=== PATIENT | male | born 1960 | race Caucasian/White ===

== ENCOUNTER 2024-01-18 15:58 | Inpatient (IN) | payer BC ==
[2024-01-18 16:35] LABS: Absolute Basophils 0.1 K/uL (0-0.5); Absolute Eosinophils 0.5 K/uL (0-0.5); Absolute Lymphocytes (CBC) 1.3 K/uL (0.7-4.9); Absolute Monocytes 1.1 K/uL (0.1-1.3); Absolute Neutrophil 4.4 K/uL (1.8-8.0); Basophils % 1.1 % (0-1.3); Eosinophils % 7.3 % (0-4.4); Hematocrit 43.1 % (39.6-49.0); Hemoglobin 14.6 g/dL (13.6-17.9); Lymphocytes % 17.2 % (15.3-44.8); MCH 29.9 pg (27.0-35.0); MCHC 33.9 g/dL (32.0-36.0); MCV 88.3 fL (80-100); MPV 9.7 fL (7.6-11.3); Monocytes % 14.3 % (3.3-12.3); Neutrophils % 60.1 % (41.7-73.7); Platelets 260 thou/uL (152-406); RBC Red Blood Cell Count 4.88 M/uL (4.33-5.43); Red Cell Distribution Width 13.9 % (12.1-15.2)
--- NOTE | 2024-01-18 16:39 | RAD REPORT ---
EXAMINATION: CT HEAD WITHOUT CONTRAST CLINICAL INDICATION: Male, 63 years old.STROKE ALERT TECHNIQUE: Axial CT images from the skull base to the vertex without intravenous contrast. Coronal an d sagittal reformatted images were created from the data set. One or more of the following dose reduction techniques were used: Automated exposure control, adjustment of the mA and/or kV according to patient size, and/or iterative reconstruction. Unless otherwise specified, incidental findings do not require dedicated imaging follow-up. [id number]. COMPARISON: No prior exam. FINDINGS: INTRACRANIAL: No acute intracranial hemorrhage. No acute large vascular territory infarct. Mild patch y areas of white matter hypoattenuation within the subcortical and deep white matter. Age-indeterminate right neal radiata infarct. VASCULATURE: No visualized abnormalities in the arteries or dural venous sinuses. SCALP/SKULL: No significant soft tissue or osseous abnormalities. SINUSES: The visualized paranasal sinuses and mastoid air cells are predominantly clear. IMPRESSION: No acute intracranial hemorrhage or large vascular territory infarct. Background of likely chronic sm all vessel ischemic changes and age indeterminate right neal radiata infarct. Conveyed to Dr. Wright by Dr. Grace at 1635 on 01/18/24
[2024-01-18 16:43] LABS: PT Prothrombin Time 12.1 SECONDS (9.4-12.5); PTT, Activated Partial Thromb 32.8 SECONDS (24.3-36.9); Protime INR 1.08
--- NOTE | 2024-01-18 16:44 | RAD REPORT ---
EXAMINATION: CTA NECK CLINICAL INDICATION: Male, 63 years old. l leg numbness TECHNIQUE: Axial CT images were obtained from the aortic arch to the skull base after intravenous con trast utilizing angiographic protocol with 3D post-processing (maximum intensity projection images, volume rendered images and/or shaded surface rendered images). One or more of the following dose redu ction techniques were used: Automated exposure control, adjustment of the mA and/or kV according to patient size, and/or iterative reconstruction. Unless otherwise specified, incidental findings do not require dedicated imaging follow-up. [id number]. NASCET criteria used. Mild 0-49% stenosis Moderate 50-69% stenosis Severe 70-99% stenosis COMPARISON: No prior exam. FINDINGS: AORTA: The imaged aortic arch is normal. CCA: The common carotid arteries are patent and normal in caliber. ICA/ECA: Bilateral internal and external carotid arteries are patent. There is no significant interna l carotid artery stenosis. Where applicable, degree of stenosis is measured using NASCET-like criteria. VERTEBRAL: The cervical vertebral arteries are patent and codominant. SOFT TISSUE: No significant neck soft tissue abnormalities. Mediastinal adenopathy is present within the visualized upper mediastinum. 3D images confirm these findings. IMPRESSION: 1. No flow limiting stenosis or dissection identified within the neck. 2. Partially imaged adenopathy and superior mediastinum. This is nonspecific. Consider follow-up CT s can of the chest to better assess.
--- NOTE | 2024-01-18 16:46 | RAD REPORT ---
EXAMINATION: CTA HEAD CLINICAL INDICATION: Male, 63 years old. STROKE ALERT TECHNIQUE: Axial CT images were obtained through the head after intravenous contrast utilizing angiog raphic protocol with 3D post-processing (maximum intensity projection images, volume rendered images and/or shaded surface rendered images). One or more of the following dose reduction technique s were used: Automated exposure control, adjustment of the mA and/or kV according to patient size, and/or iterative reconstruction. Unless otherwise specified, incidental findings do not require dedic ated imaging follow-up. COMPARISON: No prior exam. FINDINGS: ICA: The petrous, cavernous, and supraclinoid segments of the bilateral internal carotid arteries are normal. The ophthalmic artery origins are visualized and normal. The posterior communicating arteries are patent. BELLA: Anterior cerebral arteries are normal bilaterally. The anterior communicating artery is patent. MCA: Middle cerebral arteries are normal bilaterally. CONE CLEANER: Posterior cerebral arteries are normal bilaterally. Vertebrobasilar: The vertebral arteries are patent. The basilar artery is normal in appearance. 3D images confirm these findings. IMPRESSION: No aneurysm, occlusion, or stenosis identified.
[2024-01-18 16:55] LABS: ALT/SGPT 31 U/L (16-61); AST/SGOT 14 U/L (15-37); Albumin 3.6 g/dL (3.4-5.0); Albumin/Globulin Ratio 0.8 (1.1-1.8); Alkaline Phosphatase 64 U/L (45-117); Anion Gap 10.6 mEq/L (5.0-15.0); BUN Blood Urea Nitrogen 19 mg/dL (7-18); Bicarbonate 27 mEq/L (21-32); Bilirubin Direct < 0.2 mg/dL (0-0.2); Bilirubin Indirect, Calculated 0.2 mg/dL (0.2-0.8); Bilirubin Total 0.4 mg/dL (0.2-1.0); Globulin 4.3 g/dL (2.3-3.5); Glomerular Filtration Rate 58 ml/min (=/>90); Glucose Level 94 mg/dL (74-106); Magnesium 1.8 mg/dL (1.6-2.4); Potassium 3.6 mEq/L (3.5-5.1); Protein, Total 7.9 g/dL (6.4-8.2); Sodium Level 139 mEq/L (136-145); Troponin High Sensitivity 20.1 pg/mL (<58.9)
--- NOTE | 2024-01-18 16:59 | RAD REPORT ---
EXAMINATION: ONE VIEW CHEST XR CLINICAL INDICATION: Male, 63 years old.cva TECHNIQUE: 1 View, AP supine, X-ray of the chest was performed. [id number]. COMPARISON: No prior exam. FINDINGS: Lungs and pleura: Clear lungs. No effusion. Heart and mediastinum: Normal heart size. Unremarkable mediastinal contours. Osseous structures: No acute abnormality. Tubes/lines: None Other: None. IMPRESSION: No acute intrathoracic abnormality.
--- NOTE | 2024-01-18 17:59 | P.HP ---
Certification for Inpatient Patient admitted to: Inpatient With expected LOS: >2 Midnights Patient will require the following post-hospital care: None Practitioner: I am a practitioner with admitting privileges, knowledge of patient current condition, hospital course, and medical plan of care. Services: Services provided to patient in accordance with Admission requirements found in Title 42 Section 412.3 of the Code of Federal Regulations <Angelia Tran - Last Filed: 01/18/24 19:33> Patient History Date of Service: 01/18/24 Reason for admission: TIA/CVA History of Present Illness: Mr. Devlin is a 63-year-old male with a past medical history of hypertension and hyperlipidemia. 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 He was outdoors and about 90 degree weather but did not not feel overheated. ED evaluation showed negative CT head without contrast , CTA head and neck negative, chest x-ray negative, labs unremarkable (mild bump in creatinine 1.37 with a GFR of 58). Patient normally takes losartan and rosuvastatin. He recently started HCTZ. He had an echo in his home town 3 days ago and is scheduled for outpatient stress test SaturdayJanuary 20 in [facility]. On exam, he is alert and oriented, he does show some left upper arm weakness at 4/5 and he has almost spastic movement of his left lower leg. On lifting left leg he has some droop with rebound and has some lack of coordination in knee to foot motion. His 3-lead EKG visible at bedside shows PACs alternating with bigeminy at a rate between 60 and 70. He denies chest pain, dizziness, diaphoresis, shortness of breath, states he feels back to normal. Imaging: Chest x-ray findings "no acute intrathoracic abnormality." "No acute intracranial hemorrhage or large vascular territory infarct. Background of likely chronic small vessel ischemic changes and age-indeterminate right nela radiata infarct." "No aneurysm occlusion or stenosis identified." "No flow-limiting stenosis or dissection identified within the neck. Partially imaged adenopathy in the superior mediastinum. This is nonspecific. Consider follow-up CT scan of chest to better assess." Home medications list reviewed: Yes (Losartan HCTZ and rosuvastatin) - Past Medical/Surgical History Has patient received pneumonia vaccine in the past: No -: HTN -: HLD -: Hypertension -: Hyperlipidemia Psychosocial/ Personal History: Lives in [place] with his . Never smoker, denies alcohol use, states he does have some left upper arm weakness chronically - Family History Mother -: Hypertension - Social History Smoking Status: Never smoker Alcohol use: No CD- Drugs: No Caffeine use: Yes Place of Residence: Home <Angelia Tran Heladio - Last Filed: 01/18/24 19:33> Date of Service: 01/18/24 <RefugioadelineHelenafred Hastings - Last Filed: 01/18/24 21:29> Allergies No Known Allergies Allergy (Unverified 01/18/24 19:10) Review of Systems 10-point ROS is otherwise unremarkable General: Weakness Eyes: Unremarkable ENT: Unremarkable Respiratory: Unremarkable Cardiovascular: Unremarkable Gastrointestinal: Unremarkable Genitourinary: Unremarkable Musculoskeletal: Unremarkable Integumentary: Unremarkable Neurological: Unremarkable Lymphatics: Unremarkable <Angelia Tran Heladio - Last Filed: 01/18/24 19:33> Physical Examination - Physical Exam General: Alert, In no apparent distress, Oriented x3, Other (GCS 15) HEENT: Atraumatic, Normocephalic, PERRLA Neck: Supple, 2+ carotid pulse no bruit Respiratory: Normal air movement Cardiovascular: Other (PACs and bigeminy), Irregular heart rate/rhythm Capillary refill: <2 Seconds Gastrointestinal: Normal bowel sounds, Soft and benign Musculoskeletal: No clubbing, No swelling, Other (Left lower extremity spastic motion, and uncoordination, mild left upper extremity weakness 4/5) Integumentary: No rashes, No breakdown Neurological: Normal speech, Normal tone, Sensation intact, Normal affect, Other (Left upper extremity 4/5 strength, spasticity and incoordination of left lower leg ), Abnormal strength Lymphatics: No axilla or inguinal lymphadenopathy External genitalia: Deferred Rectal: Deferred - Studies Laboratory Data (last 24 hrs) 01/18/24 01/18/24 01/18/24 16:20 16:20 16:20 WBC 7.40 Hgb 14.6 Hct 43.1 Plt Count 260 PT 12.1 INR 1.08 APTT 32.8 Sodium 139 Potassium 3.6 BUN 19 H Creatinine 1.37 H Glucose 94 Magnesium 1.8 Total Bilirubin 0.4 AST 14 L ALT 31 Alkaline Phosphatase 64 <Angelia Tran Heladio - Last Filed: 01/18/24 19:33> - Studies Laboratory Data (last 24 hrs) 01/18/24 01/18/24 01/18/24 16:20 16:20 16:20 WBC 7.40 Hgb 14.6 Hct 43.1 Plt Count 260 PT 12.1 INR 1.08 APTT 32.8 Sodium 139 Potassium 3.6 BUN 19 H Creatinine 1.37 H Glucose 94 Magnesium 1.8 Total Bilirubin 0.4 AST 14 L ALT 31 Alkaline Phosphatase 64 <Kael Zuleta Darling - Last Filed: 01/18/24 21:29> Assessment and Plan - Plan TIA/CVA left motor incoordination Hypertension and hyperlipidemia Cardiac arrhythmia Telemetry MRI of the brain; available Saturday (48 hours) Echocardiogram (patient had echo 3 days ago per his qa specialist and is set for stress test on Saturday, January 20) and CTA head and neck (CTs done in ED) Platelet inhibitor Folic acid Statin (high dose and add Plavix) Losartan (per home medicine) Consult neuro Every 4h neurochecks Every shift NIH scale Monitor electrolytes and telemetry Bedside swallow study and then AHA diet VTE/GI prophylaxis NIHSS (2) 1 4 left lower extremity drift, and 1 for left lower extremity ataxia - Advance Directives Does patient have a Living Will: No Does patient have a Durable POA for Healthcare: No - Code Status/Comfort Care Code Status Assessed: Yes (Full) <Angelia Tran Heladio - Last Filed: 01/18/24 19:33> - Plan Pt seen and examined. I agree with the note by the SEED SERVICE ADVISOR. Pt is a 63yo male with past medical history of hypertension and hyperlipidemia who presents with left leg tingling and numbness. Of note. 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 He was also under the hot sun. On admission, CT head is unremarkable. CTA head and neck are unremarkable. CXR is unremarkable. Lab studies show Cr 1.37 . Of note pt had Echo 3 days ago and he is scheduled to do NM stress test on 01/21/24. At bedside, pt is in NAD. A/P: TIA/ CVA symptoms: Will admit pt to r/o CVA. CT head / CTA head and neck are unremarkable. Will allow permissive htn. Continue aspirin and statin. Consulted Neurology/ ST/OT. Will f/u MRI. Htn: Will allow permissive htn. HLD: statin DVT ppx: SCD Code: full <Kael Zuleta - Last Filed: 01/18/24 21:29>
--- NOTE | 2024-01-18 18:03 | ER ---
Nurse's Notes [facility] Name: Johan Devlin Age: 63 yrs Sex: Male : 1960 Arrival Date: 01/18/2024 Time: 15:58 Bed 6 Private MD: Diagnosis: Transient ischemic attack Presentation: 01/17 16:00 Chief complaint: Patient states: left leg got weak about noon feels numb from knee ko1 down, not better or worse. Coronavirus screen: At this time, the client does not indicate any symptoms associated with coronavirus-19. Ebola Screen: No symptoms or risks identified at this time. Initial Sepsis Screen: Does the patient meet any 2 criteria? No. Patient's initial sepsis screen is negative. Does the patient have a suspected source of infection? No. Patient's initial sepsis screen is negative. Risk Assessment: Do you want to hurt yourself or someone else? Patient reports no desire to harm self or others. Onset of symptoms was January 18, 2024. 16:00 Method Of Arrival: Ambulatory ko1 16:00 Acuity: ROSEMARIE 3 ko1 16:27 Acuity: ROSEMARIE 2 mb9 Triage Assessment: 16:03 General: Appears in no apparent distress. Behavior is calm, cooperative, appropriate ko1 for age. Pain: Denies pain. Historical: - Allergies: 16:03 No Known Allergies; ko1 - Home Meds: 16:03 Unable to obtain [Active]; ko1 - PMHx: 16:03 Hypertensive disorder; Hypercholesterolemia; ko1 - PSHx: 16:03 None; ko1 - Immunization history:: Adult Immunizations unknown. - Infectious Disease History:: Denies. - Social history:: Smoking status: Patient denies any tobacco usage or history of. - Family history:: not pertinent. Screenin:13 [facility] ED Fall Risk Assessment (Adult) History of falling in the last 3 months, mb9 including since admission No falls in past 3 months (0 pts) Confusion or Disorientation No (0 pts) Intoxicated or Sedated No (0 pts) Impaired Gait No (0 pts) Mobility Assist Device Used No (0 pt) Altered Elimination No (0 pt) Score/Fall Risk Level 0 - 2 = Low Risk Oriented to surroundings, Maintained a safe environment, Educated pt \T\ family on fall prevention, incl call for assistance when getting out of bed. Abuse screen: Denies threats or abuse. Nutritional screening: No deficits noted. Tuberculosis screening: No symptoms or risk factors identified. 16:27 Mayte Swallow Protocol Brief Cognitive Screen What is your name? Normal, Where are you mb9 right now? Normal, What year is it? Normal. Oral Mechanism Examination Facial Symmetry: Normal, Motion: Normal, Lip Closure: Normal, Oral Mechanism Result: Normal. 3 oz Water Swallow Challenge: Pt able to drink all water without stopping, coughing, choking or throat clearing: Yes Result: PASS MD Notified: Marika Mcclellan RN. Assessment: 16:18 General: Appears uncomfortable, Behavior is cooperative. Pain: Complains of pain in mb9 chest Pain does not radiate. Pain currently is 10 out of 10 on a pain scale. Quality of pain is described as pressure, Pain began suddenly. Neuro: Kraus Agitation-Sedation Scale (RASS): 0 - Alert and Calm Level of Consciousness is awake, alert, obeys commands, Oriented to person, place, time, situation, Appropriate for age Buggy Operator are equal bilaterally Weakness in left leg(s) Gait is unsteady, Speech is normal, Facial symmetry appears normal, Pupils are PERRLA, Numbness in left leg. 16:18 Cardiovascular: Reports chest pain, Heart tones S1 S2 present Patient's skin is warm mb9 and dry. Respiratory: Airway is patent Respiratory effort is even, unlabored, Respiratory pattern is regular, symmetrical, Breath sounds are clear bilaterally. GI: No signs and/or symptoms were reported involving the gastrointestinal system. : No signs and/or symptoms were reported regarding the genitourinary system. EENT: No signs and/or symptoms were reported regarding the EENT system. Derm: Skin is pink, warm \T\ dry. Musculoskeletal: Range of motion: intact in all extremities. 16:20 Reassessment: Code stroke called. Pt taken to CT with nurse via stretcher. mb9 17:47 Reassessment: No changes from previously documented assessment. Patient and/or family mb9 updated on plan of care and expected duration. Pain level reassessed. Patient is alert, oriented x 3, equal unlabored respirations, skin warm/dry/pink. Vital Signs: 16:00 BP 144 / 80; Pulse 87; Resp 16; Temp 97.3; Pulse Ox 98% ; ko1 16:45 BP 127 / 90; Pulse 74; Resp 18; Pulse Ox 100% on R/A; mb9 17:47 BP 121 / 92; Pulse 84; Resp 16; Pulse Ox 98% on R/A; mb9 19:30 BP 139 / 73; Pulse 58; Resp 17; Pulse Ox 99% ; dd2 21:00 BP 145 / 96; Pulse 52; Resp 17; Pulse Ox 99% ; dd2 23:04 BP 134 / 94; Pulse 82; Resp 17; Pulse Ox 100% ; dd2 NIH Stroke Scale Scores: 16:27 NIHSS Score: 1 9 ED Course: 16:00 Patient arrived in ED. ko1 16:03 Triage completed. ko1 16:03 Arm band placed on right wrist. Patient placed in an exam room, on a stretcher, on ko1 security monitor, on pulse oximetry, Patient notified of wait time. 16:07 Marika Mcclellan, RN is Primary Nurse. mb9 16:08 Tyrel Wright MD is Attending Physician. rt 16:13 Placed in gown. Bed in low position. Call light in reach. Side rails up X 1. Provided mb9 Education on: press call light if needing anything. Client placed on continuous cardiac and pulse oximetry monitoring. NIBP monitoring applied. bus monitor on. 16:[address] via stretcher. mb9 16:20 Initial lab(s) drawn, by dc, sent to lab. Inserted saline lock: 20 gauge in right 9 antecubital area, using aseptic technique. Blood collected. Flushed with 10 mL NS. 16:35 CT Neck Angio In Process Unspecified. EDMS 16:35 CT Stroke Brain w/o Contrast In Process Unspecified. EDMS 16:35 Head angio In Process Unspecified. EDMS 16:39 EKG done, by ED staff, reviewed by Marika Mcclellan RN. mb9 16:46 Stroke CXR 1 View In Process Unspecified. EDMS 16:46 No provider procedures requiring assistance completed. mb9 18:00 Kael Zuleta MD is Hospitalizing Provider. rt 18:37 Patient admitted, IV remains in place. mb9 19:02 Report given to DULCE and MARTINA Wilson. mb9 19:25 Primary Nurse role handed off by Marika Mcclellan, MARTINA gomez 21:00 Patient admitted, IV remains in place. dd2 22:57 DARLIN PETERSEN, RN is Primary Nurse. dd2 Administered Medications: No medications were administered Medication: 16:13 VIS not applicable for this client. sejal Outcome: 18:02 Decision to Hospitalize by Provider. rt 21:00 Admitted to Med/surg dd2 21:00 Admitted to Med/surg accompanied by tech, via wheelchair, with chart, 21:00 Condition: stable 21:00 Instructed on the need for admit, 01/18 00:23 Patient left the ED. dd2 NIH Stroke Scale - NIH Stroke Score Date: 01/18/2024 Time: 16:27 Total Score = 1 10. Dysarthria (speech clarity - read or repeat words) - 0(Normal) 11. Extinction and Inattention (visual/tactile/auditory/spatial/personal) - 0(No abnormality) 1a. Level of Consciousness (LOC) - 0(Alert) 1b. Level of Consciousness (LOC) (Month \T\ Age) - 0(Both) 1c. LOC Commands (Open \T\ Closes Eyes/Eviction Specialist) - 0(Both) 2. Best Gaze (Lateral Gaze Paresis) - 0(Normal) 3. Visual Field Loss - 0(No visual loss) 4. Facial Palsy - 0(Normal) 5a. Left Arm: Motor (10-second hold) - 0(No drift) 5b. Right Arm: Motor (10-second hold) - 0(No drift) 6a. Left Leg: Motor (5-second hold - always test supine) - 1(Drift) 6b. Right Leg: Motor (5-second hold - always test supine) - 0(No drift) 7. Limb Ataxia (finger/nose \T\ heel/sepulveda - test with eyes open) - 0(Absent) 8. Sensory Loss (pinprick arms/legs/face) - 0(Normal) 9. Best Language: Aphasia (description/naming/reading) - 0(No aphasia) Initials: sejal Signatures: Dispatcher [employer] EDSachin Ferrell RN RN [id number] Kathy Almanza, MARTINA RN Marika Esparza RN RN [id number] Tyrel Wright MD MD rt DARLIN PETERSEN, RN RN dd2 Corrections: (The following items were deleted from the chart) 09/28 16:05 16:00 Chief complaint: Patient states: left leg got weak about noon, not better ko1 or worse ko1 16:21 16:19 Reassessment: Code stroke called mb9 mb9
--- NOTE | 2024-01-18 18:03 | EDPHYS ---
Physician Documentation [facility] Name: Johan Devlin Age: 63 yrs Sex: Male : 1960 Arrival Date: 01/18/2024 Time: 15:58 Bed 6 Private MD: ED Physician Tyrel Wright HPI: 01/17 18:16 This 63 yrs old Male presents to ER via Ambulatory with complaints of General Weakness. rt 18:16 Patient presents to the ED with numbness to the left leg, weakness starting "before rt lunch." Unclear when the true last known normal was. Patient states that the symptoms have somewhat improved but not resolved. Has never had similar symptoms previously. Denies other acute complaints at this time, symptoms are moderate in severity, no other aggravating or alleviating factors.. Historical: - Allergies: 16:03 No Known Allergies; ko1 - Home Meds: 16:03 Unable to obtain [Active]; ko1 - PMHx: 16:03 Hypertensive disorder; Hypercholesterolemia; ko1 - PSHx: 16:03 None; ko1 - Immunization history:: Adult Immunizations unknown. - Infectious Disease History:: Denies. - Social history:: Smoking status: Patient denies any tobacco usage or history of. - Family history:: not pertinent. ROS: 18:16 Constitutional: Negative for fever, chills, and weight loss, Cardiovascular: Negative rt for chest pain, palpitations, and edema, Respiratory: Negative for shortness of breath, cough, wheezing, and pleuritic chest pain, Abdomen/GI: Negative for abdominal pain, nausea, vomiting, diarrhea, and constipation, Skin: Negative for injury, rash, and discoloration, 18:16 Neuro: Positive for numbness, weakness, Exam: 18:16 Constitutional: This is a well developed, well nourished patient who is awake, alert, rt and in no acute distress. Head/Face: Normocephalic, atraumatic. Chest/axilla: Normal chest wall appearance and motion. Nontender with no deformity. No lesions are appreciated. Cardiovascular: Regular rate and rhythm with a normal S1 and S2. No gallops, murmurs, or rubs. Normal PMI, no JVD. No pulse deficits. Respiratory: Lungs have equal breath sounds bilaterally, clear to auscultation and percussion. No rales, rhonchi or wheezes noted. No increased work of breathing, no retractions or nasal flaring. Abdomen/GI: Soft, non-tender, with normal bowel sounds. No distension or tympany. No guarding or rebound. No evidence of tenderness throughout. MS/ Extremity: Pulses equal, no cyanosis. Neurovascular intact. Full, normal range of motion. 18:16 ECG was reviewed by the Attending Physician. 18:16 Neuro: 4/5 strength in left lower extremity, strength and sensation intact otherwise, no cranial nerve deficits, speech normal, no visual field deficits, no ataxia on [id number], Vital Signs: 16:00 BP 144 / 80; Pulse 87; Resp 16; Temp 97.3; Pulse Ox 98% ; ko1 16:45 BP 127 / 90; Pulse 74; Resp 18; Pulse Ox 100% on R/A; mb9 17:47 BP 121 / 92; Pulse 84; Resp 16; Pulse Ox 98% on R/A; mb9 19:30 BP 139 / 73; Pulse 58; Resp 17; Pulse Ox 99% ; dd2 21:00 BP 145 / 96; Pulse 52; Resp 17; Pulse Ox 99% ; dd2 23:04 BP 134 / 94; Pulse 82; Resp 17; Pulse Ox 100% ; dd2 NIH Stroke Scale Scores: 16:27 NIHSS Score: 1 mb9 MDM: 16:09 Patient medically screened. rt 18:16 Differential Diagnosis CVA, TIA. Data reviewed: vital signs, nurses notes, lab test rt result(s), EKG, radiologic studies. Consideration of Admission/Observation Patient was admitted/placed on observation. Management of patient was discussed with the following: Hospitalist: Agrees to admit. I considered the following discharge prescriptions or medication management in the emergency department Medications were administered in the Emergency Department. See MAR. Independent interpretation of the following test(s) in the Emergency Department CT Scan: My interpretation is No intracranial hemorrhage seen on interpretation of CT scan images. Care significantly affected by the following chronic conditions: Hypertension. Counseling: I had a detailed discussion with the patient and/or guardian regarding the historical points, exam findings, and any diagnostic results supporting the discharge/admit diagnosis, lab results, radiology results, the need for further work-up and treatment in the hospital. Response to treatment: the patient's symptoms have markedly improved after treatment. ED course: Due to unclear timing of onset as well as rapidly improving symptoms, he is not a TNKase candidate. 01/17 16:20 Order name: Basic Metabolic Panel; Complete Time: 16:56 rt 01/17 16:20 Order name: CBC with Diff; Complete Time: 16:56 rt 01/17 16:20 Order name: Hepatic Function; Complete Time: 16:56 rt 01/17 16:20 Order name: High Sensitivity Troponin; Complete Time: 16:56 rt 01/17 16:20 Order name: Magnesium; Complete Time: 16:56 rt 01/17 16:20 Order name: Protime (+inr); Complete Time: 16:56 rt 01/17 16:20 Order name: Ptt, Activated; Complete Time: 16:56 rt 01/17 16:55 Order name: Glucose, Ancillary Testing; Complete Time: 16:56 EDMS 01/17 19:02 Order name: C-Reactive Protein EDMS 01/17 19:02 Order name: C-Reactive Protein EDMS 01/17 19:02 Order name: CBC with Automated Diff EDMS 01/17 19:02 Order name: CBC with Automated Diff EDMS 01/17 19:02 Order name: Comprehensive Metabolic Panel EDMS 01/17 19:02 Order name: Comprehensive Metabolic Panel EDMS 01/17 19:02 Order name: Lipid Profile EDMS 01/17 19:02 Order name: Lipid Profile EDMS 01/17 19:02 Order name: Magnesium EDMS 01/17 19:03 Order name: Magnesium EDMS 01/17 19:03 Order name: Phosphorus EDMS 01/17 19:03 Order name: Phosphorus EDMS 01/17 19:03 Order name: Protime (+INR) EDMS 01/17 19:03 Order name: Protime (+INR) EDMS 01/17 19:03 Order name: Protime (+INR) EDMS 01/17 19:03 Order name: Protime (+INR) EDMS 01/17 19:03 Order name: Protime (+INR) EDMS 01/17 19:03 Order name: Protime (+INR) EDMS 01/17 19:03 Order name: PTT, Activated Partial Thromb EDMS 01/17 19:03 Order name: PTT, Activated Partial Thromb EDMS 01/17 19:03 Order name: PTT, Activated Partial Thromb EDMS 01/17 19:03 Order name: PTT, Activated Partial Thromb EDIL 01/17 19:03 Order name: PTT, Activated Partial Thromb [facility]IL 01/17 19:03 Order name: PTT, Activated Partial Thromb [facility] 01/17 19:03 Order name: Thyroid Stimulating Hormone [facility]IL 01/17 19:03 Order name: Thyroid Stimulating Hormone [facility] 01/17 19:03 Order name: Troponin High Sensitivity [facility]IL 01/17 19:03 Order name: Troponin High Sensitivity [facility] 01/17 19:03 Order name: Troponin High Sensitivity [facility] 01/17 19:11 Order name: Ferritin [facility]IL 01/17 19:11 Order name: Ferritin [facility] 01/17 19:11 Order name: Iron [facility] 01/17 19:11 Order name: Iron [facility] 01/17 16:20 Order name: CT Neck Angio; Complete Time: 16:56 rt 01/17 16:20 Order name: CT Stroke Brain w/o Contrast; Complete Time: 16:56 rt 01/17 16:20 Order name: Stroke CXR 1 View; Complete Time: 17:10 rt 01/17 16:25 Order name: Head angio; Complete Time: 16:56 EDIL 01/17 19:02 Order name: Echo with Doppler [facility] 01/17 19:02 Order name: CONS Physician Consult [facility] 01/17 19:02 Order name: Physical Therapy Consult [facility] 01/17 19:02 Order name: EKG Electrocardiogram [facility] 01/17 16:20 Order name: Accucheck; Complete Time: 16:47 rt 01/17 16:20 Order name: Cardiac monitoring; Complete Time: 16:30 rt 01/17 16:20 Order name: EKG - Nurse/Tech; Complete Time: 16:47 rt 01/17 16:20 Order name: IV Saline Lock; Complete Time: 16:30 rt 01/17 16:20 Order name: Labs collected and sent; Complete Time: 16:30 rt 01/17 16:20 Order name: NPO; Complete Time: 16:30 rt 01/17 16:20 Order name: O2 Per Protocol; Complete Time: 16:30 rt 01/17 16:20 Order name: O2 Sat Monitoring; Complete Time: 16:30 rt 01/17 16:20 Order name: Stroke Swallow Screen; Complete Time: 16:30 rt EC:16 Rate is 73 beats/min. Rhythm is regular, Normal Sinus Rhythm with No ectopy. Right axis rt deviation noted. VT interval is normal. QRS interval is normal. QT interval is normal. No Q waves. Clinical impression: NSR w/ Non-specific ST/T Changes. Administered Medications: No medications were administered Disposition Summary: 01/18/24 18:02 Hospitalization Ordered Notes: Hospitalization Status: Observation rt Provider: Kael Zuleta rt Location: Telemetry/MedSurg (observation) rt Condition: Stable rt Problem: new rt Symptoms: are resolved rt Bed/Room Type: Standard rt Room Assignment: 211(01/18/24 22:01) km Diagnosis - Transient ischemic attack rt Forms: - Medication Reconciliation Form rt - SBAR form rt - Leadership Thank You Letter rt NIH Stroke Scale - NIH Stroke Score Date: 01/18/2024 Time: 16:27 Total Score = 1 10. Dysarthria (speech clarity - read or repeat words) - 0(Normal) 11. Extinction and Inattention (visual/tactile/auditory/spatial/personal) - 0(No abnormality) 1a. Level of Consciousness (LOC) - 0(Alert) 1b. Level of Consciousness (LOC) (Month \\T\\ Age) - 0(Both) 1c. LOC Commands (Open \\T\\ Closes Eyes/Watch Supervisor) - 0(Both) 2. Best Gaze (Lateral Gaze Paresis) - 0(Normal) 3. Visual Field Loss - 0(No visual loss) 4. Facial Palsy - 0(Normal) 5a. Left Arm: Motor (10-second hold) - 0(No drift) 5b. Right Arm: Motor (10-second hold) - 0(No drift) 6a. Left Leg: Motor (5-second hold - always test supine) - 1(Drift) 6b. Right Leg: Motor (5-second hold - always test supine) - 0(No drift) 7. Limb Ataxia (finger/nose \\T\\ heel/sepulveda - test with eyes open) - 0(Absent) 8. Sensory Loss (pinprick arms/legs/face) - 0(Normal) 9. Best Language: Aphasia (description/naming/reading) - 0(No aphasia) Initials: mb9 Signatures: Dispatcher [employer] EDKathy Dover RN RN ko1 Turkington, TyrelMD MD rt Sabine Kelsey Maroul kmf Corrections: (The following items were deleted from the chart) 22:01 18:02 rt kmf
[2024-01-18] MEDS: NA CHLORIDE 0.9% 1,000 ML IV SCH (19:00)
[2024-01-18] MEDS: ATORVASTATIN 80 MG TAB PO SCH (21:00)
[2024-01-18] MEDS: FOLIC ACID 1 MG TABLET PO SCH (21:00)
[2024-01-19 00:12] VITALS: BMI 30.1
[2024-01-19 05:20] LABS: Absolute Basophils 0.1 K/uL (0-0.5); Absolute Eosinophils 0.6 K/uL (0-0.5); Absolute Lymphocytes (CBC) 1.4 K/uL (0.7-4.9); Absolute Monocytes 0.8 K/uL (0.1-1.3); Absolute Neutrophil 4.3 K/uL (1.8-8.0); Eosinophils % 8.8 % (0-4.4); Hematocrit 39.9 % (39.6-49.0); Hemoglobin 13.8 g/dL (13.6-17.9); Lymphocytes % 19.2 % (15.3-44.8); MCH 30.2 pg (27.0-35.0); MCHC 34.6 g/dL (32.0-36.0); MCV 87.3 fL (80-100); MPV 9.2 fL (7.6-11.3); Monocytes % 11.6 % (3.3-12.3); Neutrophils % 59.4 % (41.7-73.7); Nucleated Red Blood Cells % 0.2 % (0-0); Platelets 237 thou/uL (152-406); RBC Red Blood Cell Count 4.57 M/uL (4.33-5.43)
[2024-01-19 05:29] LABS: PT Prothrombin Time 12.4 SECONDS (9.4-12.5); PTT, Activated Partial Thromb 31.4 SECONDS (24.3-36.9); Protime INR 1.11
[2024-01-19 05:46] LABS: ALT/SGPT 28 U/L (16-61); AST/SGOT 17 U/L (15-37); Albumin 3.3 g/dL (3.4-5.0); Albumin/Globulin Ratio 0.9 (1.1-1.8); Alkaline Phosphatase 54 U/L (45-117); Anion Gap 7.4 mEq/L (5.0-15.0); BUN Blood Urea Nitrogen 22 mg/dL (7-18); Bicarbonate 29 mEq/L (21-32); Bilirubin Total 0.7 mg/dL (0.2-1.0); Globulin 3.6 g/dL (2.3-3.5); Glomerular Filtration Rate 71 ml/min (=/>90); Glucose Level 100 mg/dL (74-106); Phosphorus 2.6 mg/dL (2.5-4.9); Potassium 3.4 mEq/L (3.5-5.1); Protein, Total 6.9 g/dL (6.4-8.2); Sodium Level 138 mEq/L (136-145); Troponin High Sensitivity 26.1 pg/mL (<58.9)
[2024-01-19 05:47] LABS: Ferritin 411.9 ng/mL (26-388); HDL Cholesterol 37 mg/dL (40-60); LDL Cholesterol, Calculated 63 mg/dL (<130); LDL Cholesterol,Calc NonReport 63; Magnesium 1.8 mg/dL (1.6-2.4)
[2024-01-19 06:05] LABS: C-Reactive Protein < 2.90 mg/L (<3.00)
[2024-01-19] MEDS: POTASSIUM CL SA 10 MEQ TAB PO ONE (08:01)
[2024-01-19] MEDS: ASPIRIN EC 81 MG TAB PO SCH (08:01)
[2024-01-19] MEDS: CLOPIDOGREL 75 MG TABLET PO SCH (08:01)
[2024-01-19] MEDS: MAGNESIUM SULFATE 1 gm IVPB 1 GM/100 ML BAG IV ONE (08:01)
[2024-01-19] MEDS ORDERED: LOSARTAN POTASSIUM 50 MG TABLET PO SCH (09:00)
--- NOTE | 2024-01-19 10:32 | P.PN ---
Subjective Date of Service: 01/19/24 Chief Complaint: TIA/CVA Subjective: Improving (Pt states he is feeling better, no sob, walked to bathroom and described less numbness to left lower ext) <Angelia Tran - Last Filed: 01/19/24 10:28> Date of Service: 01/19/24 <Manasa Rubin - Last Filed: 01/26/24 21:46> Review of Systems 10-point ROS is otherwise unremarkable General: Unremarkable Eyes: Unremarkable ENT: Unremarkable Respiratory: Unremarkable Cardiovascular: Unremarkable Gastrointestinal: Unremarkable Genitourinary: Unremarkable Musculoskeletal: Unremarkable Integumentary: Unremarkable Neurological: Other (States he is feeling back to normal) <Angelia Tran - Last Filed: 01/19/24 10:28> Physical Examination - Vital Signs Temperature: 97.5 F Blood Pressure: 148/88 Pulse: 54 Respirations: 12 Pulse Ox (%): 96 - Physical Exam General: Alert, In no apparent distress, Oriented x3 HEENT: Atraumatic, Normocephalic Neck: Supple Respiratory: Clear to auscultation bilaterally, Normal air movement Cardiovascular: Normal pulses, Irregular heart rate/rhythm (Nurses documented normal sinus rhythm overnight) Capillary refill: <2 Seconds Gastrointestinal: Normal bowel sounds, Soft and benign Musculoskeletal: No clubbing, Other (Continued ataxia of left lower extremity minimally improved over yesterday, equal strength on left and right upper extremity) Integumentary: No rashes Neurological: Normal speech, Normal tone, Other (Continued left lower extremity ataxia, equal left and right upper extremity strength) Lymphatics: No axilla or inguinal lymphadenopathy External genitalia: Deferred Rectal: Deferred - Studies Laboratory Data (last 24 hrs) 01/18/24 01/18/24 01/18/24 16:20 16:20 16:20 WBC 7.40 Hgb 14.6 Hct 43.1 Plt Count 260 PT 12.1 INR 1.08 APTT 32.8 Sodium 139 Potassium 3.6 BUN 19 H Creatinine 1.37 H Glucose 94 Magnesium 1.8 Total Bilirubin 0.4 AST 14 L ALT 31 Alkaline Phosphatase 64 <Angelia Tranlen - Last Filed: 01/19/24 10:28> Assessment And Plan - Plan TIA/CVA left motor incoordination Hypertension and hyperlipidemia Cardiac arrhythmia Telemetry MRI of the brain; available Saturday (48 hours) Echocardiogram (patient 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 and is set for stress test on Saturday, January 20) and CTA head and neck (CTs done in ED) Platelet inhibitor Folic acid Statin (high dose and add Plavix) Losartan (per home medicine) Consult neuro Every 4h neurochecks Every shift NIH scale Monitor electrolytes and telemetry Bedside swallow study and then AHA diet VTE/GI prophylaxis NIHSS (2) 1 4 left lower extremity drift, and 1 for left lower extremity ataxia 01/19/2024 NIHSS 1 for continued ataxia to the left lower extremity GCS 15 CT chest with contrast ordered secondary to finding of mediastinal lymphadenopathy <Angelia Tran - Last Filed: 01/19/24 10:28>
[2024-01-19] MEDS: LOSARTAN POTASSIUM 50 MG TABLET PO SCH (12:03)
--- NOTE | 2024-01-19 13:07 | P.CNS ---
Date of Consult: 01/19/24 Chief Complaint: TIA/CVA History of Present Illness: Patient with PMH of HTN, presented with weakness, left sided, admitted for possible TIA, denies any cardiac symptoms, no chest painm no JACOBS, no SOB, no palpitations, no syncope. Allergies No Known Allergies Allergy (Verified 01/19/24 01:25) Home medications list reviewed: Yes Home Medications: Losartan Potassium 100 mg PO DAILY 01/19/24 Rosuvastatin [Crestor] 20 mg PO DAILY 01/19/24 hydroCHLOROthiazide [Hydrochlorothiazide] 12.5 mg PO DAILY 01/19/24 - Past Medical/Surgical History Diabetic: No -: HTN -: HLD -: Hypertension -: Hyperlipidemia Psychosocial/ Personal History: Lives in [place] with his . Never smoker, denies alcohol use, states he does have some left upper arm weakness chronically - Family History Mother Medical History: Hypertension - Social History Alcohol use: No CD- Drugs: No Caffeine use: Yes Place of Residence: Home Review of Systems 10-point ROS is otherwise unremarkable Physical Examination Temp Pulse Resp BP Pulse Ox 97.9 F 82 14 153/73 H 98 01/19/24 12:00 01/19/24 12:00 01/19/24 12:00 01/19/24 12:00 01/19/24 12:00 General: Alert, In no apparent distress HEENT: Atraumatic, PERRLA, Mucous membr. moist/pink, EOMI, Sclerae nonicteric Neck: Supple, 2+ carotid pulse no bruit, No LAD, Without JVD or thyroid abnormality Respiratory: Clear to auscultation bilaterally, Normal air movement Cardiovascular: Regular rate/rhythm, Normal S1 S2 Gastrointestinal: Normal bowel sounds, No tenderness Musculoskeletal: No tenderness Integumentary: No rashes Neurological: Normal gait, Normal speech, Normal tone, Normal affect Lymphatics: No axilla or inguinal lymphadenopathy Laboratory Data (last 24 hrs) 01/18/24 01/18/24 01/18/24 16:20 16:20 16:20 WBC 7.40 Hgb 14.6 Hct 43.1 Plt Count 260 PT 12.1 INR 1.08 APTT 32.8 Sodium 139 Potassium 3.6 BUN 19 H Creatinine 1.37 H Glucose 94 Magnesium 1.8 Total Bilirubin 0.4 AST 14 L ALT 31 Alkaline Phosphatase 64 - Problems (1) PVC (premature ventricular contraction) Current Visit: Yes Status: Acute Plan: 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 (2) HTN (hypertension) Current Visit: Yes Status: Acute Plan: continue losartan 50 mg daily
--- NOTE | 2024-01-19 16:38 | RAD REPORT ---
Chest CT with contrast CLINICAL INDICATION: Male, 63 years old. Mediastinal lymphoadenopathy TECHNIQUE: Routine CT scan of the chest with intravenous contrast. One or more of the following dose reduction techniques were used: Automated exposure control, adjustment of the mA and/or kV according to patient size, and/or iterative reconstruction. Unless otherwise specified, incidental fi ndings do not require dedicated imaging follow-up. [id number]. COMPARISON: Chest radiograph from yesterday FINDINGS: LOWER NECK: Visualized thyroid gland and soft tissues are normal. LUNGS AND AIRWAYS: Airways are clear. No evidence of airspace or interstitial process. No nodules. PLEURA: No pleural effusion. No pneumothorax. Hemidiaphragms are normally positioned. MEDIASTINUM AND LYMPH NODES: Bilateral mediastinal and hilar lymphadenopathy. For example, there is a left hilar lymph node which measures 1.9 cm. Subcarinal lymph node measures 2.4 cm. THORACIC AORTA: Normal caliber and configuration. PULMONARY ARTERIES: Normal caliber. HEART: Normal heart size. No coronary calcifications.No pericardial effusion. OSSEOUS STRUCTURES AND CHEST WALL: Intact. UPPER ABDOMEN: Cholelithiasis. Hepatic steatosis. IMPRESSION: Mediastinal and symmetric bilateral hilar adenopathy.Sarcoid or another reactive type process would b e most likely. Metastatic disease and/or lymphoproliferative process considered less likely, particularly if the patient does not have a known history. Bronchoscopy (which need not be emergent) with sampling could better evaluate if clinically indicated.
[2024-01-19 22:52] VITALS: O2SAT 97
--- NOTE | 2024-01-20 07:40 | P.DS ---
Admission Date: 01/18/24 Discharge Date: 01/20/24 Reason for Admission: TIA/CVA Brief History of Present Illness: Mr. Devlin is a 63-year-old male with a past medical history of hypertension and hyperlipidemia. 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 He was outdoors and about 90 degree weather but did not not feel overheated. ED evaluation showed negative CT head without contrast , CTA head and neck negative, chest x-ray negative, labs unremarkable (mild bump in creatinine 1.37 with a GFR of 58). Patient normally takes losartan and rosuvastatin. He recently started HCTZ. He had an echo in his home town 3 days ago and is scheduled for outpatient stress test SaturdayJanuary 20 in [facility]. On exam, he is alert and oriented, he does show some left upper arm weakness at 4/5 and he has almost spastic movement of his left lower leg. On lifting left leg he has some droop with rebound and has some lack of coordination in knee to foot motion. His 3-lead EKG visible at bedside shows PACs alternating with bigeminy at a rate between 60 and 70. He denies chest pain, dizziness, diaphoresis, shortness of breath, states he feels back to normal. Physical Exam General: Alert, In no apparent distress, Oriented x3, Other (GCS 15) HEENT: Atraumatic, Normocephalic, PERRLA Neck: Supple, 2+ carotid pulse no bruit Respiratory: Normal air movement Cardiovascular: , Irregular heart rate/rhythm Capillary refill: <2 Seconds Gastrointestinal: Normal bowel sounds, Soft and benign Musculoskeletal: No clubbing, No swelling, Other (Left lower extremity spastic motion, and uncoordination, mild left upper extremity weakness 4/5) Integumentary: No rashes, No breakdown Neurological: Normal speech, Normal tone, Sensation intact, Normal affect, Other (Left upper extremity 4/5 strength, spasticity and incoordination of left lower leg ), Abnormal strength Lymphatics: No axilla or inguinal lymphadenopathy Hospital Course: Mr. Devlin is a 63-year-old male with a past medical history of hypertension and hyperlipidemia. 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 ED evaluation showed negative CT head without contrast , CTA head and neck negative, chest x-ray negative, labs unremarkable (mild bump in creatinine 1.37 with a GFR of 58). Patient normally takes losartan and rosuvastatin. He recently started HCTZ. He had an echo in his home town 3 days ago and is scheduled for outpatient stress test SaturdayJanuary 20 in [facility]. He needs to follow up with cariology after discharge. MRI, PT eval for DME needs. Assessment and Plan TIA/CVA left motor incoordination-PT, neurology to eval, will complete [id number] with neurology after discharge Hypertension and hyperlipidemia Cardiac arrhythmia-continue aspirin and statin MRI small bilateral syndrome semiovale without foci of diffusion restriction suggesting acute to subacute infarcts, distribution may suggest watershed ischemia, chronic appearing dominantly peripheral microhemorrhages, may suggest chronic amyloid angiopathy, a small remote infarct or hemorrhage is present in the right frontal LENTIFROM nuclear's. Background white matter signal abnormalities, nonspecific but suggestive of chronic small vessel ischemic changes Continue home medicines as previously prescribed GOAL: Clear understanding of disease process INSTRUCTIONS: Physician Discharge Instructions: -Follow-up with cardiology after discharge -Follow-up with cardiology after discharge -Follow-up with PCP in 1 weeks -Please call Dr. Rubin at [phone] if any questions regarding hospital stay -Please call nursing station at [phone] if any nursing or medication questions -Return to the emergency room if symptoms worsen Diet: ADA, low sodium Activity: Fall precautions <Ivon George - Last Filed: 01/20/24 14:22> Admission Date: 01/18/24 Discharge Date: 01/20/24 Hospital Course: Pt seen and examined. I agree with the note by the INSTRUCTIONAL MATERIAL DIRECTOR. Pt does not have any focal deficit. Waiting for the MRI brain before discharge. Pt needs to follow up with Pulm for further evaluation of the mediastinal bilateral hilar adenopathy. Ok to discharge pt with aspirin, statin, plavix and folic acid. Follow up with Neurology and Pulmonology within 1 - 2 weeks. <Kael Zuleta - Last Filed: 01/20/24 15:29> Disposition: ROUTINE DISCHARGE Discharge Condition: GOOD Vital Signs/Physical Exam: Temp Pulse Resp BP Pulse Ox 98.0 F 50 15 151/97 H 98 01/20/24 04:00 01/20/24 04:00 01/20/24 04:00 01/20/24 04:00 01/20/24 04:00 Laboratory Data at Discharge: WBC 7.20 thou/uL (4.3-10.9) 01/19/24 04:48 Hgb 13.8 g/dL (13.6-17.9) 01/19/24 04:48 Hct 39.9 % (39.6-49.0) 01/19/24 04:48 Plt Count 237 thou/uL (152-406) 01/19/24 04:48 PT 12.4 SECONDS (9.4-12.5) 01/19/24 04:48 INR 1.11 01/19/24 04:48 APTT 31.4 SECONDS (24.3-36.9) 01/19/24 04:48 Sodium 136 mEq/L (136-145) 01/20/24 05:53 Potassium 4.0 mEq/L (3.5-5.1) 01/20/24 05:53 BUN 21 mg/dL (7-18) H 01/20/24 05:53 Creatinine 1.09 mg/dL (0.70-1.30) 01/20/24 05:53 Glucose 105 mg/dL (74-106) 01/20/24 05:53 Phosphorus 2.6 mg/dL (2.5-4.9) 01/19/24 04:48 Magnesium 1.8 mg/dL (1.6-2.4) 01/19/24 04:48 Total Bilirubin 0.7 mg/dL (0.2-1.0) 01/19/24 04:48 AST 17 U/L (15-37) 01/19/24 04:48 ALT 28 U/L (16-61) 01/19/24 04:48 Alkaline Phosphatase 54 U/L (45-117) 01/19/24 04:48 Triglycerides 83 mg/dL (<150) 01/19/24 04:48 Cholesterol 117 mg/dL (<200) 01/19/24 04:48 HDL Cholesterol 37 mg/dL (40-60) L 01/19/24 04:48 Cholesterol/HDL Ratio 3.16 01/19/24 04:48 <Ivon George - Last Filed: 01/20/24 14:22> Vital Signs/Physical Exam: Temp Pulse Resp BP Pulse Ox 97.7 F 68 14 158/86 H 97 01/20/24 08:00 01/20/24 08:00 01/20/24 08:00 01/20/24 08:00 01/20/24 08:00 Laboratory Data at Discharge: WBC 7.20 thou/uL (4.3-10.9) 01/19/24 04:48 Hgb 13.8 g/dL (13.6-17.9) 01/19/24 04:48 Hct 39.9 % (39.6-49.0) 01/19/24 04:48 Plt Count 237 thou/uL (152-406) 01/19/24 04:48 PT 12.3 SECONDS (9.4-12.5) 01/20/24 07:29 INR 1.10 01/20/24 07:29 APTT 34.2 SECONDS (24.3-36.9) 01/20/24 07:29 Sodium 136 mEq/L (136-145) 01/20/24 05:53 Potassium 4.0 mEq/L (3.5-5.1) 01/20/24 05:53 BUN 21 mg/dL (7-18) H 01/20/24 05:53 Creatinine 1.09 mg/dL (0.70-1.30) 01/20/24 05:53 Glucose 105 mg/dL (74-106) 01/20/24 05:53 Phosphorus 2.6 mg/dL (2.5-4.9) 01/19/24 04:48 Magnesium 2.0 mg/dL (1.6-2.4) 01/20/24 05:53 Total Bilirubin 0.7 mg/dL (0.2-1.0) 01/19/24 04:48 AST 17 U/L (15-37) 01/19/24 04:48 ALT 28 U/L (16-61) 01/19/24 04:48 Alkaline Phosphatase 54 U/L (45-117) 01/19/24 04:48 Triglycerides 83 mg/dL (<150) 01/19/24 04:48 Cholesterol 117 mg/dL (<200) 01/19/24 04:48 HDL Cholesterol 37 mg/dL (40-60) L 01/19/24 04:48 Cholesterol/HDL Ratio 3.16 01/19/24 04:48 <Kale Zuleta - Last Filed: 01/20/24 15:29> Time spent managing pt's care (in minutes): 55 <Ivon George - Last Filed: 01/20/24 14:22> <Kael Zuleta - Last Filed: 01/20/24 15:29> Home Medications: Losartan Potassium 100 mg PO DAILY 01/19/24 Rosuvastatin [Crestor] 20 mg PO DAILY 01/19/24 hydroCHLOROthiazide [Hydrochlorothiazide] 12.5 mg PO DAILY 01/19/24 Physician Discharge Instructions: Continue ad josé miguel activity as tolerated. Take home meds as prescribed. Follow up with Metal Fabrication Supervisor in 1 - 2 weeks for further evaluation of the hilar adenopathy. Follow up with PCP within 1 - 2 weeks. Followup: Isaac Sagastume MD [ACTIVE - CAN ADMIT] - MELLISSA MALLOY [Primary Care Provider] -
[2024-01-20 07:48] LABS: PT Prothrombin Time 12.3 SECONDS (9.4-12.5); PTT, Activated Partial Thromb 34.2 SECONDS (24.3-36.9); Protime INR 1.1
--- NOTE | 2024-01-20 10:21 | EKG ---
Test Date: 2024-01-18 Test Time: 16:39:10 [employer]er: MB MEASUREMENT RESULTS: Intervals: Rate: 73 WV: 170 QRSD: 94 QT: 384 QTc: 423 [place]: P: 153 WV: 170 QRS: 176 T: 181 INTERPRETIVE STATEMENTS: Suspect arm lead reversal, interpretation assumes no reversal Unusual P axis, possible ectopic atrial rhythm Right axis deviation ST & T wave abnormality, consider inferior ischemia Abnormal ECG No previous ECG available for comparison Electronically Signed On 01-20-24 10:19:38 CDT by Dash Carlson
[2024-01-20 13:09] VITALS: BP 183/80; TEMP 97.5
--- NOTE | 2024-01-20 14:12 | RAD REPORT ---
EXAMINATION: MRI BRAIN WITHOUT CONTRAST CLINICAL INDICATION: Male, 63 years old.[facility] CVA TECHNIQUE: Multiplanar multisequence MR images of the brain were obtained without intravenous contras t. Unless otherwise specified, incidental findings do not require dedicated imaging follow-up. COMPARISON: Noncontrast head CT and CT angiogram of the brain of the same day FINDINGS: INTRACRANIAL: Midline structures are unremarkable. Few bilateral centrum semiovale small foci of dif fusion restriction with corresponding low signal on ADC images. Focus of near CSF signal intensity and adjacent gliosis with corresponding hemosiderin deposition in the right lentiform nucleus, sugges ting a small remote infarct or hemorrhage.. There is otherwise mild brain atrophy with mildT2/FLAIR hyperintensities in the periventricular and deep white matter regions, likely representing chronic mi crovascular ischemic changes. There is no mass effect or midline shift. No abnormal extraaxial fluid collection. Numerous other predominantly peripheral foci of susceptibility signal abnormality in the supratentori al brain as well as a single focus in the anterior right daniel, suggesting sequelae of remote microhemorrhages. VASCULATURE: Normal signal voids in the larger intracranial arteries and dural venous sinuses. SINUSES: The paranasal sinuses and mastoid air cells are predominantly clear. BONE: The marrow signal pattern is within normal limits. IMPRESSION: Few small bilateral centrum semiovale without foci of diffusion restriction suggesting acute to subac mike infarcts. Distribution may suggest watershed ischemia. Chronic appearing dominantly peripheral microhemorrhages. 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 A small remote infarct or hemorrhage is present in the right lentiform nucleus. Other background white matter signal abnormalities, nonspecific, but suggestive of chronic small vessel isc hemic changes.
== END 2024-01-20 15:53 | disposition home or self-care (01) | DRG 66 ==
LOC: ER 15:58 → ERHOLD 18:49 → 2ND 23:27
PROVIDERS: ADMIT Hospitalist; ATTEND Hospitalist
DX: I63.9 Cerebral infarction, unspecified (principal); I10 Essential (primary) hypertension; I49.9 Cardiac arrhythmia, unspecified; I49.3 Ventricular premature depolarization; E78.00 Pure hypercholesterolemia, unspecified; R29.702 NIHSS score 2; Z79.82 Long term (current) use of aspirin; Z79.899 Other long term (current) drug therapy
CPT/HCPCS: 36415; 70450; 70496; 70498; 70551; 71045; 71260; 80048; 80053; 80061; 80076; 82728; 82947; 83540; 83735; 84100; 84132; 84439; 84443; 84484; 85025; 85610; 85730; 86140; 93005; 97116; 97161; 99285; J3475; J7030; Q9967